=== PATIENT | female | born 1995 | race Caucasian/White ===

== ENCOUNTER 2017-01-29 02:01 | Emergency (ER) | payer OTHER ==
[2017-01-29 02:02] VITALS: BMI 21.2
[2017-01-29 02:15] VITALS: RESP 16
[2017-01-29] MEDS ORDERED: Promethazine/Cod 6.25mg-10mg/5ml Syr UD PO STA (02:53)
[2017-01-29] MEDS ORDERED: Promethazine/Cod 6.25mg-10mg/5ml Syr UD ONE (03:03)
--- NOTE | 2017-01-29 03:15 | C.PDOC ---
History Of Present Illness 21 y/o female presents to ED with complaints of constant cough for two weeks worse during the night. Patient was seen by PMD and was seen at ED 3 days ago, chest x-ray was done and Prednilosone and Tessalon prescribed . Patient denies fever, chills, chest pain, N/V/D or other complaints. Time Seen by Provider: 01/29/17 02:35 Chief Complaint (Nursing): Cough, Cold, Congestion History Per: Patient History/Exam Limitations: no limitations Onset/Duration Of Symptoms: Days Current Symptoms Are (Timing): Still Present Associated Symptoms: Cough. denies: Fever, Chills, Vomiting, Diarrhea Severity: Mild Recent travel outside of the [place]: No Additional History Per: Patient Past Medical History Reviewed: Historical Data, Nursing Documentation, Vital Signs Vital Signs: Last Vital Signs Temp 98.2 F 01/29/17 03:51 Pulse 74 01/29/17 03:51 Resp 16 01/29/17 03:51 BP 96/56 L 01/29/17 03:51 Pulse Ox 100 01/29/17 03:51 - Medical History PMH: Asthma, Migraine Family History: States: Unknown Family Hx - Social History Hx Tobacco Use: No Hx Alcohol Use: No Hx Substance Use: No - Immunization History Hx Tetanus Toxoid Vaccination: Yes Hx Influenza Vaccination: Yes Hx Pneumococcal Vaccination: Yes Review Of Systems Except As Marked, All Systems Reviewed And Found Negative. Constitutional: Negative for: Fever, Chills Cardiovascular: Negative for: Chest Pain Respiratory: Positive for: Cough. Negative for: Shortness of Breath Gastrointestinal: Negative for: Nausea, Vomiting, Diarrhea Skin: Negative for: Rash Physical Exam - Physical Exam Appears: Non-toxic, No Acute Distress Skin: Normal Color, Warm Head: Atraumatic, Normacephalic Eye(s): bilateral: Normal Inspection Oral Mucosa: Moist Throat: Normal Neck: Normal ROM, Supple Chest: Symmetrical Cardiovascular: Rhythm Regular, No Murmur Respiratory: Normal Breath Sounds, No Rales, No Rhonchi, No Wheezing Gastrointestinal/Abdominal: Normal Exam, No Tenderness, No Guarding, No Rebound Extremity: Normal ROM, No Pedal Edema Neurological/Psych: Oriented x3, Normal Speech, Normal Cognition, Cerebellar Signs, Normal Motor, Normal Sensation, Normal Reflexes Gait: Steady ED Course And Treatment O2 Sat by Pulse Oximetry: 99 (RA) Pulse Ox Interpretation: Normal Medical Decision Making Medical Decision Making: Impression: A 21 female patient with two week constant cough worsen at night. Patient previously seen in ER, CXR and prescribed Prednisolone and Tessalon. Patient denies chest pain, fever, N/V/D. Physical exam was normal, no acute distress. Plan: Claritin & Promethazine Progress: Patient was given claritin and promethazine. Patient symptoms improved and was in stable condition to be discharged home.Patient was instructed to follow up with PMD in 1-2 days. Disposition - Disposition Referrals: Chandler Hilliard MD [Staff Provider] - Disposition: HOME/ ROUTINE Disposition Time: 03:00 Condition: STABLE Additional Instructions: Follow up with the medical doctor/clinic within 1-2 days. Return if worsened. Prescriptions: Loratadine [Claritin] 10 mg PO DAILY #10 tab Promethazine/Codeine [Codeine/Promethazine 10 MG/5 Ml-6.25 MG/5 Ml] 5 ml PO TID PRN #50 ml PRN Reason: Cough Instructions: Acute Bronchitis (ED) Forms: Work Excuse - Clinical Impression Clinical Impression: Bronchitis - PA / WORKFORCE DEVELOPMENT ASSISTANT / Resident Statement MD/DO has examined the patient and agrees with the treatment plan. - Scribe Statement Santosh Trinh All medical record entries made by the Scribe were at my direction and personally dictated by me. I have reviewed the chart and agree that the record accurately reflects my personal performance of the history, physical exam, medical decision making, and the department course for this patient. I have also personally directed, reviewed, and agree with the discharge instructions and disposition.
[2017-01-29 03:53] VITALS: BP 96/56; PULSE 74; TEMP 98.2
[2017-01-29 05:14] VITALS: O2SAT 99
== END 2017-01-29 03:51 | disposition home or self-care (01) ==
LOC: C.ER 02:01
DX: J40 Bronchitis, not specified as acute or chronic (principal)

== ENCOUNTER 2017-03-27 02:24 | Emergency (ER) | payer OTHER ==
[2017-03-27 02:24] VITALS: BMI 21.2
[2017-03-27 02:34] VITALS: O2SAT 100
[2017-03-27] MEDS ORDERED: Tetracaine 0.5% Ophth 2 ML BOTTLE OD ONE (02:48)
[2017-03-27] MEDS ORDERED: Fluorescein 1 mg Ophthalmic Strip OD ONE (02:48)
--- NOTE | 2017-03-27 02:48 | C.PDOC ---
History Of Present Illness 22 yo female come in for evaluation of Right eye pain gradually developed since yesterday afternoon. Right eye pain is associated with light sensitivity, FB sensation. Admits, (+) contacts use, removed earlier. Otherwise, pt denies recent illness, headache, dizziness, blurry vision, pain on eye movement, known trauam or injury, denies any other active complaints. Ambulate to ED, appears in pain, wears sunglasses. Time Seen by Provider: 03/27/17 02:32 Chief Complaint (Nursing): Eye Problem History Per: Patient Onset/Duration Of Symptoms: Gradual Current Symptoms Are (Timing): Still Present Past Medical History Reviewed: Historical Data, Nursing Documentation, Vital Signs Vital Signs: Last Vital Signs Temp 98.4 F 03/27/17 02:32 Pulse 100 H 03/27/17 02:32 Resp 20 03/27/17 02:32 BP 111/66 03/27/17 02:32 Pulse Ox 100 03/27/17 02:56 - Medical History PMH: Asthma, Migraine Surgical History: No Surg Hx Family History: States: No Known Family Hx - Social History Hx Tobacco Use: No Hx Alcohol Use: No Hx Substance Use: No - Immunization History Hx Tetanus Toxoid Vaccination: Yes Hx Influenza Vaccination: Yes Hx Pneumococcal Vaccination: Yes Review Of Systems Except As Marked, All Systems Reviewed And Found Negative. Constitutional: Negative for: Fever, Chills Eyes: Positive for: Pain, Redness. Negative for: Vision Change ENT: Negative for: Ear Discharge, Nose Discharge, Nose Congestion, Throat Pain Cardiovascular: Negative for: Chest Pain Respiratory: Negative for: Cough, Shortness of Breath Gastrointestinal: Negative for: Nausea, Vomiting Musculoskeletal: Negative for: Neck Pain Skin: Negative for: Rash Neurological: Negative for: Weakness, Numbness, Altered Mental Status, Headache , Dizziness Physical Exam - Physical Exam Appears: Well, Non-toxic, No Acute Distress Skin: Normal Color, Warm, No Rash Head: Normacephalic Eye(s): bilateral: PERRL, EOMI, right: Other ((+)fluoresciene uptake at middle. NO periorbital edema or erythema.), left: Normal Inspection Ear(s): Bilateral: Normal Nose: No Flaring, No Discharge Oral Mucosa: Moist, No Drooling Throat: Normal, No Erythema, No Exudate, No Drooling Neck: Supple Extremity: No Pedal Edema, No Deformity Neurological/Psych: Oriented x3, Normal Speech, Normal Motor, Normal Sensation, Normal Reflexes ED Course And Treatment O2 Sat by Pulse Oximetry: 100 Pulse Ox Interpretation: Normal Progress Note: On re-eavluation, pt is afebrile, hemodynamiclay stable. Pt reports, moderate imporvemnet in eye pain after Tobramycin eye drops apply. Right eye exam c/w corneal abrasion, no pain or limitation on extraocular movement. No periorbital edema or erythema. Abx opht qtt, eye patch given. Pt advised and ref. to F/u with Opht in 1-2 days for re-eavl. return if any new changes. Disposition Counseled Patient/Family Regarding: Studies Performed, Diagnosis, Need For Followup, Rx Given - Disposition Referrals: Seth Calvo MD [Staff Provider] - Disposition: HOME/ ROUTINE Disposition Time: 02:55 Condition: STABLE Additional Instructions: Use medication as prescribed Eye patch, sunglasses, avoid light exposure for 1 week Avoid contact use for 2 weeks Follow up with ophtalmology in 1-2 days for re-evaluation. Return to ED if any worsening or new changes. Prescriptions: Dexamethasone/Tobramycin [Tobradex 0.1%-0.3% 2.5 Ml] 1 drop RIGHTEYE Q4 #1 bottle traMADol [Ultram] 50 mg PO TID #7 tab Instructions: Corneal Abrasion (ED) Forms: Work Excuse Print Language: CYPRIOT - Clinical Impression Clinical Impression: Corneal abrasion
[2017-03-27] MEDS ORDERED: Tobramycin/Dexamethasone (Tobradex) Opth Sol (2.5 ml) OD STA (03:08)
[2017-03-27 04:06] VITALS: BP 110/60; PULSE 96; RESP 18; TEMP 98
== END 2017-03-27 04:07 | disposition home or self-care (01) ==
LOC: C.ER 02:24
DX: S05.01XA Injury of conjunctiva and corneal abrasion without foreign body, right eye, initial encounter (principal); X58.XXXA Exposure to other specified factors, initial encounter

== ENCOUNTER 2017-07-09 22:44 | Emergency (ER) | payer OTHER ==
[2017-07-09 22:44] VITALS: BMI 21.2
[2017-07-09 22:53] VITALS: RESP 20; TEMP 98.2
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
[2017-07-10 02:13] VITALS: BP 128/76; PULSE 86
[2017-07-10 02:33] VITALS: O2SAT 100
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
== END 2017-07-10 01:30 | disposition home or self-care (01) ==
LOC: C.ER 22:44
DX: S16.1XXA Strain of muscle, fascia and tendon at neck level, initial encounter (principal); V89.2XXA Person injured in unspecified motor-vehicle accident, traffic, initial encounter; E04.1 Nontoxic single thyroid nodule